=== PATIENT | female | born 1995 | race Caucasian/White ===

== ENCOUNTER 2018-03-23 22:07 | Emergency (ER) | payer OTHER ==
[2018-03-23 22:15] VITALS: BP 126/77
--- NOTE | 2018-03-23 22:20 | ED Physician Documentation ---
PD HPI UPPER EXT INJURY - Stated complaint Stated Complaint: WRIST INJURY - Chief complaint Chief Complaint: Ext Problem - History obtained from History obtained from: Patient - History of Present Illness Location: Right, Wrist Type of injury: Fall (while snowboarding at [employer]) Timing - onset: Today Timing - details: Gradual onset Worsened by: Moving Associated symptoms: Swelling. No: Numbness, Tingling Similar symptoms before: Has not had sx before Review of Systems Constitutional: reports: Reviewed and negative GI: reports: Reviewed and negative : denies: Now [facility] PD PAST MEDICAL HISTORY - Allergies Allergies/Adverse Reactions: Allergies Allergy/AdvReac Type Severity Reaction Status Date / Time No Known Drug Allergies Allergy Verified 03/23/18 22:13 PD ED PE NORMAL - Vitals Vital signs reviewed: Yes - General General: Alert and oriented X 3, No acute distress - Neck Neck: Supple, no meningeal sign, No bony TTP - Extremities Extremities: Other (Right wrist is moderately tender dorsally over the metacarpals, not specifically the snuffbox and she does not have severe pain with axial loading of the thumb.) - Neuro Neuro: Alert and oriented X 3, Normal speech Results - Vitals Vitals: Vital Signs - 24 hr 03/23/18 22:10 Temperature 36.7 C Heart Rate 65 Respiratory 16 Rate Blood Pressure 126/77 O2 Saturation 100 - Rads (name of study) R wrist 4v Radiology: EMP read contemporaneously (Suspected cortical fracture of the dorsal distal radius seen best on the lateral view only.) Procedures - Splint (location) R wrist Splint applied by: Tech Type of splint: Fiberglass, Short arm, Volar cock up Other: Patient tolerated well, No complications, Neurovascular intact Departure - Departure Disposition: 01 Home, Self Care Clinical Impression: Fracture of right distal radius Qualifiers: Encounter type: initial encounter Fracture type: closed Fracture morphology: other extra-articular Qualified Code(s): S52.551A - Other extraarticular fracture of lower end of right radius, initial encounter for closed fracture Condition: Good Record reviewed to determine appropriate education?: Yes Instructions: ED Fx Forearm Radius Ulna No Redu Requ Follow-Up: [facility] [Provider Group] - Within 1 week
--- NOTE | 2018-03-23 22:41 | XRAY Report ---
Reason: right wrist inj Procedure Date: 03/23/2018 Accession Number: [id number] / [id number] Procedure: XR - Wrist 4 View RT CPT Code: FULL RESULT: EXAM: RIGHT WRIST RADIOGRAPHY EXAM DATE: 03/23/2018 10:33 PM. CLINICAL HISTORY: Right wrist pain and swelling after injury. COMPARISON: None. TECHNIQUE: 4 views. FINDINGS: Bones: On the lateral view, there is suspected fracture in the dorsal cortex of the distal radial metaphysis. No other acute fracture is seen. Joints: No dislocation is noted. Joint spaces appear intact. Soft Tissues: Soft tissue swelling. IMPRESSION: 1. Suspected fracture in the dorsal cortex of the distal radial metaphysis, seen only on the lateral view. [facility]
== END 2018-03-23 22:56 | disposition home or self-care (01) ==
LOC: ED 22:07
DX: S52.511A Displaced fracture of right radial styloid process, initial encounter for closed fracture (principal); V00.311A Fall from snowboard, initial encounter; Y93.23 Activity, snow (alpine) (downhill) skiing, snowboarding, sledding, tobogganing and snow tubing; Y92.828 Other wilderness area as the place of occurrence of the external cause
CPT/HCPCS: 29125; 99282; 99283